=== PATIENT | male | born 1955 | race Caucasian/White ===

== ENCOUNTER 2022-04-04 12:23 | Inpatient (IN) | payer OTHER ==
[2022-04-04 13:11] VITALS: BMI 19.1
[2022-04-04] MEDS ORDERED: BISMUTH SUBSALICYLATE 524 MG/30 ML PO PRN (14:43)
[2022-04-04] MEDS ORDERED: MAGNESIUM CITRATE 300 ML BOTTLE PO PRN (14:43)
[2022-04-04] MEDS ORDERED: LOPERAMIDE HCL 2 MG CAPSULE PO PRN (14:43)
[2022-04-04] MEDS ORDERED: MAG HYDROX/AL HYDROX/SIMETH 30 ML UNIT-DOSE CUP PO PRN (14:43)
[2022-04-04] MEDS ORDERED: ONDANSETRON *ODT* 4 MG TABLET SL PRN (14:43)
[2022-04-04] MEDS ORDERED: ACETAMINOPHEN 325 MG TABLET (FP) PO PRN (14:43)
[2022-04-04] MEDS ORDERED: NALOXONE HCL (KLOXXADO) 8 MG SPRAY NS PRN (14:43)
[2022-04-04] MEDS ORDERED: DICYCLOMINE HCL 10 MG CAPSULE PO PRN (14:43)
[2022-04-04] MEDS ORDERED: MAGNESIUM HYDROX 2400MG/30ML ORAL SUSPENSION 30 ML CUP PO PRN (14:43)
[2022-04-04] MEDS ORDERED: BENZOCAINE/MENTHOL (CHLORASEPTIC ) LOZENGE MM PRN (14:43)
[2022-04-04] MEDS ORDERED: HYDROCORTISONE 0.5% TOPICAL CREAM 30 GM TUBE TP PRN (14:58)
[2022-04-04] MEDS ORDERED: methaDONE HCL 10 MG TABLET (FOR DETOX USE ONLY) ONE (14:58)
[2022-04-04] MEDS ORDERED: methaDONE HCL 10 MG TABLET (FOR DETOX USE ONLY) PO ONE (15:15)
[2022-04-04] MEDS: ALBUTEROL SO4 HFA INHALER IH PRN (16:13)
[2022-04-04] MEDS: IBUPROFEN 600 MG TABLET (FP) PO PRN (16:16)
[2022-04-04] MEDS: hydrOXYzine PAMOATE 25 MG CAPSULE (FP) PO PRN ×2 (16:16→22:28)
[2022-04-04] MEDS: metFORMIN HCL 500 MG TABLET (FP) PO SCH (17:14)
[2022-04-04] MEDS: INSULIN SLIDING SCALE (NOVOLOG) 1 VIAL SQ SCH (17:15)
[2022-04-04] MEDS: ACETAMINOPHEN 325 MG TABLET (FP) PO PRN (18:15)
[2022-04-04] MEDS: THIAMINE HCL 100 MG TABLET (FP) PO SCH (22:28)
[2022-04-04] MEDS: METHOCARBAMOL 500 MG TABLET PO PRN (22:28)
[2022-04-04] MEDS: MELATONIN 5 MG TABLETS PO SCH (22:28)
[2022-04-04] MEDS: cloNIDine HCL 0.1 MG TABLET PO PRN (22:28)
[2022-04-05] MEDS: hydrOXYzine PAMOATE 25 MG CAPSULE (FP) PO PRN ×3 (02:58→22:20)
[2022-04-05] MEDS: IBUPROFEN 600 MG TABLET (FP) PO PRN ×2 (02:58→17:01)
[2022-04-05] MEDS: ALBUTEROL SO4 HFA INHALER IH PRN ×3 (03:01→17:27)
[2022-04-05] MEDS: cloNIDine HCL 0.1 MG TABLET PO PRN ×3 (03:24→22:20)
[2022-04-05] MEDS: metFORMIN HCL 500 MG TABLET (FP) PO SCH ×2 (07:53→17:14)
[2022-04-05] MEDS: INSULIN SLIDING SCALE (NOVOLOG) 1 VIAL SQ SCH ×2 (07:53→17:14)
[2022-04-05 11:14] LABS: HEMATOCRIT 40.4 % (35.4-49); HEMOGLOBIN 13.7 GM/dL (11.7-16.9); MCH 27.6 pg (25.7-33.7); MEAN CELL VOLUME 81.2 fl (80-96); MEAN PLT VOLUME 7.1 fl (7.5-11.1); PLATELET COUNT 202 10^3/uL (134-434); RBC 4.97 M/mm3 (4.00-5.60); RDW 14.3 % (11.9-15.9); WHITE BLOOD COUNT 6.3 K/mm3 (4.0-10.0)
[2022-04-05] MEDS: PRENATAL VITAMINS W/ FOLIC ACID TABLET (FP) PO SCH (11:18)
[2022-04-05] MEDS: METHOCARBAMOL 500 MG TABLET PO PRN ×2 (11:19→18:42)
[2022-04-05 11:20] LABS: ALBUMIN 3.4 g/dl (3.4-5.0); BLOOD UREA NITROGEN 17.6 mg/dL (7-18); CALCIUM 8.7 mg/dL (8.5-10.1)
[2022-04-05 11:23] LABS: CREATININE 0.8 mg/dL (0.55-1.3)
[2022-04-05 11:25] LABS: BILIRUBIN,TOTAL 0.4 mg/dL (0.2-1); TOT PROT 6.3 g/dl (6.4-8.2)
[2022-04-05] MEDS: ACETAMINOPHEN 325 MG TABLET (FP) PO PRN (22:20)
[2022-04-05] MEDS: THIAMINE HCL 100 MG TABLET (FP) PO SCH (22:21)
[2022-04-05] MEDS: MELATONIN 5 MG TABLETS PO SCH (22:21)
[2022-04-06] MEDS: cloNIDine HCL 0.1 MG TABLET PO PRN ×2 (04:05→22:06)
[2022-04-06] MEDS: hydrOXYzine PAMOATE 25 MG CAPSULE (FP) PO PRN ×3 (06:07→15:52)
[2022-04-06] MEDS: ACETAMINOPHEN 325 MG TABLET (FP) PO PRN ×2 (06:09→15:52)
[2022-04-06] MEDS: INSULIN SLIDING SCALE (NOVOLOG) 1 VIAL SQ SCH ×2 (06:43→17:24)
[2022-04-06] MEDS: metFORMIN HCL 500 MG TABLET (FP) PO SCH ×2 (06:45→17:24)
[2022-04-06] MEDS ORDERED: methaDONE HCL 10 MG TABLET (FOR DETOX USE ONLY) PO ONE (10:00)
[2022-04-06] MEDS: PRENATAL VITAMINS W/ FOLIC ACID TABLET (FP) PO SCH (10:37)
[2022-04-06] MEDS: METHOCARBAMOL 500 MG TABLET PO PRN ×2 (10:39→19:38)
[2022-04-06] MEDS: ALBUTEROL SO4 HFA INHALER IH PRN ×2 (17:25→19:35)
[2022-04-06] MEDS: IBUPROFEN 600 MG TABLET (FP) PO PRN (22:06)
[2022-04-06] MEDS: MELATONIN 5 MG TABLETS PO SCH (22:06)
[2022-04-06] MEDS: THIAMINE HCL 100 MG TABLET (FP) PO SCH (22:06)
[2022-04-07] MEDS: ACETAMINOPHEN 325 MG TABLET (FP) PO PRN ×3 (01:51→17:36)
[2022-04-07] MEDS: hydrOXYzine PAMOATE 25 MG CAPSULE (FP) PO PRN (01:51)
[2022-04-07] MEDS: METHOCARBAMOL 500 MG TABLET PO PRN ×3 (05:09→20:05)
[2022-04-07] MEDS: metFORMIN HCL 500 MG TABLET (FP) PO SCH ×2 (07:30→17:34)
[2022-04-07] MEDS: INSULIN SLIDING SCALE (NOVOLOG) 1 VIAL SQ SCH ×2 (07:31→18:04)
[2022-04-07] MEDS ORDERED: hydrOXYzine PAMOATE 25 MG CAPSULE (FP) PO PRN (09:10)
[2022-04-07] MEDS: PRENATAL VITAMINS W/ FOLIC ACID TABLET (FP) PO SCH (10:01)
[2022-04-07] MEDS: IBUPROFEN 600 MG TABLET (FP) PO PRN ×2 (10:02→16:21)
[2022-04-07] MEDS ORDERED: hydrOXYzine PAMOATE 25 MG CAPSULE (FP) PO ONE (18:46)
[2022-04-07] MEDS: THIAMINE HCL 100 MG TABLET (FP) PO SCH (22:00)
[2022-04-07] MEDS: ALBUTEROL SO4 HFA INHALER IH PRN (22:01)
[2022-04-07] MEDS: MELATONIN 5 MG TABLETS PO SCH (22:01)
[2022-04-07] MEDS: IBUPROFEN 400 MG TABLET (FP) PO PRN (23:54)
[2022-04-08] MEDS: METHOCARBAMOL 500 MG TABLET PO PRN ×3 (05:48→18:52)
[2022-04-08 06:46] VITALS: RESP 18
[2022-04-08] MEDS: INSULIN SLIDING SCALE (NOVOLOG) 1 VIAL SQ SCH ×2 (06:54→17:15)
[2022-04-08] MEDS: metFORMIN HCL 500 MG TABLET (FP) PO SCH ×2 (06:54→17:22)
[2022-04-08] MEDS: ACETAMINOPHEN 325 MG TABLET (FP) PO PRN ×2 (07:30→17:16)
[2022-04-08] MEDS ORDERED: methaDONE HCL 10 MG TABLET (FOR DETOX USE ONLY) PO ONE (10:00)
[2022-04-08] MEDS: PRENATAL VITAMINS W/ FOLIC ACID TABLET (FP) PO SCH (10:26)
[2022-04-08] MEDS: IBUPROFEN 400 MG TABLET (FP) PO PRN (12:20)
[2022-04-08] MEDS: amLODIPine BESYLATE 5 MG TABLET (FP) PO SCH (15:11)
[2022-04-08] MEDS: ALBUTEROL SO4 HFA INHALER IH PRN ×2 (18:52→22:08)
[2022-04-08] MEDS ORDERED: cloNIDine HCL 0.1 MG TABLET PO PRN (21:58)
[2022-04-08] MEDS: THIAMINE HCL 100 MG TABLET (FP) PO SCH (22:08)
[2022-04-08] MEDS: MELATONIN 5 MG TABLETS PO SCH (22:08)
[2022-04-09] MEDS: METHOCARBAMOL 500 MG TABLET PO PRN (04:17)
[2022-04-09] MEDS: metFORMIN HCL 500 MG TABLET (FP) PO SCH (06:22)
[2022-04-09] MEDS: INSULIN SLIDING SCALE (NOVOLOG) 1 VIAL SQ SCH (07:28)
[2022-04-09] MEDS ORDERED: INSULIN SLIDING SCALE (NOVOLOG) 1 VIAL SQ ONE (08:12)
[2022-04-09 09:10] VITALS: BP 127/73; PULSE 92; TEMP 96.9
[2022-04-09] MEDS: ALBUTEROL SO4 HFA INHALER IH PRN (09:43)
[2022-04-09] MEDS: PRENATAL VITAMINS W/ FOLIC ACID TABLET (FP) PO SCH (09:43)
[2022-04-09] MEDS: amLODIPine BESYLATE 5 MG TABLET (FP) PO SCH (09:43)
[2022-04-09] MEDS: IBUPROFEN 600 MG TABLET (FP) PO PRN (09:44)
== END 2022-04-09 10:57 | disposition home or self-care (01) | DRG 897 ==
LOC: YASAS 12:23 → Y3N 15:15
PROVIDERS: ADMIT Allergy & Immunology; ATTEND Psychiatry & Neurology Psychiatry
PROC: HZ2ZZZZ Detoxification Services for Substance Abuse Treatment (ICD-10-PCS; principal; 2022-04-04)
DX: F11.23 Opioid dependence with withdrawal (principal); F14.20 Cocaine dependence, uncomplicated; Z68.1 Body mass index [BMI] 19.9 or less, adult; F41.9 Anxiety disorder, unspecified; I10 Essential (primary) hypertension; J45.30 Mild persistent asthma, uncomplicated; M15.9 Polyosteoarthritis, unspecified; M54.9 Dorsalgia, unspecified; M40.204 Unspecified kyphosis, thoracic region; G89.29 Other chronic pain; E11.51 Type 2 diabetes mellitus with diabetic peripheral angiopathy without gangrene; Z79.84 Long term (current) use of oral hypoglycemic drugs; R63.4 Abnormal weight loss; Z99.89 Dependence on other enabling machines and devices; Z88.0 Allergy status to penicillin
CPT/HCPCS: 36415; 80053; 82962; 84443; 85027; 86780; 93005; 93010; C9803-CS; U0003; U0005